=== PATIENT | female | born 1990 | race Two or more races ===

== ENCOUNTER 2022-12-24 20:27 | Outpatient (CLI) | payer OTHER | END 2022-12-24 20:28 | disposition home or self-care (01) | LOC: SC 20:27 | PROVIDERS: ATTEND Nurse Practitioner Family | DX: R06.83 Snoring (principal); G47.8 Other sleep disorders; R06.81 Apnea, not elsewhere classified; R51.9 Headache, unspecified; G47.10 Hypersomnia, unspecified; R53.83 Other fatigue; E66.3 Overweight; F32.A Depression, unspecified; E11.9 Type 2 diabetes mellitus without complications; Z68.26 Body mass index [BMI] 26.0-26.9, adult | CPT/HCPCS: 95810 ==

== ENCOUNTER 2023-02-11 08:26 | Emergency (ER) | payer OTHER ==
--- NOTE | 2023-02-11 08:50 | ED Physician Documentation ---
PD HPI NVD - Stated complaint Stated Complaint: VOMITING/WEAKNESS - Chief complaint Chief Complaint: Abd Pain - History obtained from History obtained from: Patient - History of Present Illness Timing - onset: Last night (about midinght) Timing - duration: Hours Timing - details: Abrupt onset, Still present Associated symptoms: Abdominal pain, Loss of appetite. No: Fever, Hematemesis, Near syncope / syncope Contributing factors: Bad food (she had salad for dinner, did not taste bad but was at restaurant. Had not had any URI symptoms.). No: Sick contact Improved by: No: Eating, Vomiting Worsened by: Eating Similar symptoms before: Has not had sx before Recently seen: Not recently seen Review of Systems Constitutional: reports: Myalgias, Fatigue. denies: Fever, Chills Nose: denies: Rhinorrhea / runny nose, Congestion Throat: denies: Sore throat Respiratory: denies: Cough GI: reports: Nausea, Vomiting. denies: Abdominal Swelling, Diarrhea : denies: Dysuria, Frequency, Discharge Neurologic: reports: Generalized weakness. denies: Near syncope PD PAST MEDICAL HISTORY - Past Medical History Past Medical History: Yes Cardiovascular: None GI: None FAN RUNNER: None - Past Surgical History Past Surgical History: No - Present Medications Home Medications: Ambulatory Orders Medication Instructions Recorded Confirmed Prazosin [Minipress] See Rx Instructions .ROUTE .COMPLEX 12/02/22 02/11/23 SUMAtriptan [Imitrex] See Rx Instructions .ROUTE .COMPLEX 12/02/22 02/11/23 Ondansetron Odt [Zofran] 4 mg TL Q6H PRN #12 tablet 02/11/23 - Allergies Allergies/Adverse Reactions: Allergies Allergy/AdvReac Type Severity Reaction Status Date / Time No Known Drug Allergies Allergy Verified 02/11/23 08:32 - Social History Does the pt smoke?: No Smoking Status: Never smoker Does the pt drink ETOH?: No - Immunizations Immunizations are current?: Yes - POLST Patient has POLST: No PD ED PE NORMAL - Vitals Vital signs reviewed: Yes - General General: Alert and oriented X 3, Well developed/nourished - HEENT HEENT: Pharynx benign - Neck Neck: Supple, no meningeal sign, No adenopathy - Cardiac Cardiac: No murmur. No: RRR (tachycardic but regular.) - Respiratory Respiratory: No respiratory distress, Clear bilaterally - Abdomen Abdomen: Normal bowel sounds, Soft, Non distended, Other (tender midly without guarding nor percussion tneder diffusely but more to LLQ. ) Results - Vitals Vitals: Oxygen O2 Source Room air - Labs Labs: Laboratory Tests 02/11/23 02/11/23 02/11/23 08:35 08:35 08:50 WBC 9.1 RBC 4.38 Hgb 12.7 Hct 39.7 MCV 90.6 MCH 29.0 MCHC 32.0 RDW 12.5 Plt Count 246 MPV 10.7 Neut # (Auto) 8.3 H Lymph # (Auto) 0.5 L Haines # (Auto) 0.2 Eos # (Auto) 0.1 Baso # (Auto) 0.0 Absolute Nucleated RBC 0.00 Nucleated RBC % 0.0 Sodium Potassium Chloride Carbon Dioxide Anion Gap BUN Creatinine Estimated GFR (MDRD) Glucose Calcium Total Bilirubin AST ALT Alkaline Phosphatase Total Protein Albumin Globulin Albumin/Globulin Ratio Lipase Urine Color YELLOW Urine Clarity CLEAR Urine pH 8.0 H Ur Specific [place] 1.015 Urine Protein NEGATIVE Urine Glucose (UA) NEGATIVE Urine Ketones NEGATIVE Urine Occult Blood NEGATIVE Urine Nitrite NEGATIVE Urine Bilirubin NEGATIVE Urine Urobilinogen 0.2 (NORMAL) Ur Leukocyte Esterase NEGATIVE Ur Microscopic Review NOT INDICATED Urine Culture Comments NOT INDICATED Urine HCG, Qual NEGATIVE 02/11/23 08:50 WBC RBC Hgb Hct MCV MCH MCHC RDW Plt Count MPV Neut # (Auto) Lymph # (Auto) Haines # (Auto) Eos # (Auto) Baso # (Auto) Absolute Nucleated RBC Nucleated RBC % Sodium 136 Potassium 3.9 Chloride 103 Carbon Dioxide 27 Anion Gap 6.0 BUN 11 Creatinine 0.6 Estimated GFR (MDRD) 116 Glucose 95 Calcium 9.3 Total Bilirubin 0.5 AST 19 ALT 19 Alkaline Phosphatase 52 Total Protein 7.2 Albumin 4.3 Globulin 2.9 Albumin/Globulin Ratio 1.5 Lipase 25 Urine Color Urine Clarity Urine pH Ur Specific [place] Urine Protein Urine Glucose (UA) Urine Ketones Urine Occult Blood Urine Nitrite Urine Bilirubin Urine Urobilinogen Ur Leukocyte Esterase Ur Microscopic Review Urine Culture Comments Urine HCG, Qual PD Medical Decision Making - ED course Complexity details: reviewed results (normal UA, CBC, and chemistries. ), re- evaluated patient (shared decision to not do any imaging as had just mild tenderness and mostly left abdomen. Not tender RLQ nor RUQ in particular. Will treat with IV fluids and meds of Oofran and Toradol. had good improvement in symptoms with this. Taking PO well. Basic CBC and chemistires normal in my reviedw. ), considered differential (abrupt onset midnightish and through night of nausea and vomiting, some diffuse abd cramping. No diarrhea. She attributes it to a sald for dinner. General weakness and lightheaded this morning. Sytill nausea. ), d/w patient Departure - Departure Disposition: 01 Home, Self Care Clinical Impression: Volume depletion Nausea and vomiting Qualifiers: Vomiting type: bilious vomiting Qualified Code(s): R11.14 - Bilious vomiting Condition: Stable Record reviewed to determine appropriate education?: Yes Instructions: ED Nausea Vomiting Prescriptions: Ondansetron Odt [Zofran] 4 mg TL Q6H PRN #12 tablet PRN Reason: Nausea / Vomiting Comments: This most likely is a viral "stomach flu" in the last a day or 2. Sometimes it is food related with toxin or "food poisoning". This also tends to last just a day or 2. However you will still likely have some symptoms today. I wrote a prescription for some ondansetron/Zofran to use every 4-6 hours if needed for nausea. Small frequent fluids and electrolyte type drinks such as Gatorade or such. [place] food such as crackers rice and pastas initially and progress as tolerated. Tylenol every 4-6 hours if needed for stomach cramps. You may develop some element of diarrhea 2 and if so some [id number] Imodium can be used. [facility] Off work today and tomorrow. Progress activity and diet as tolerated. Recheck if not better in the next couple of days. Forms: PCP List, Activity restrictions Discharge Date/Time: 02/11/23 11:46
[2023-02-11 08:57] LABS: BASOPHILS % (AUTO) 0.1 %; EOSINOPHILS # (AUTO) 0.1 10^3/uL (0.0-0.7); EOSINOPHILS % (AUTO) 0.7 %; HCT - HEMATOCRIT 39.7 % (37.0-47.0); HGB - HEMOGLOBIN 12.7 g/dL (12.0-16.0); LYMPHOCYTES # (AUTO) 0.5 10^3/uL (1.5-3.5); LYMPHOCYTES % (AUTO) 5.9 %; MEAN CORPUSCULAR VOLUME 90.6 fL (81.0-99.0); MEAN PLATELET VOLUME 10.7 fL (7.9-10.8); MONOCYTES # (AUTO) 0.2 10^3/uL (0.0-1.0); MONOCYTES % (AUTO) 2.3 %; NEUTROPHILS # (AUTO) 8.3 10^3/uL (1.5-6.6); NEUTROPHILS % (AUTO) 90.8 %; PLT - PLATELET COUNT 246 10^3/uL (130-450); RED BLOOD COUNT 4.38 10^6/uL (4.20-5.40); RED CELL DISTRIBUTION WIDTH 12.5 % (12.0-15.0); WHITE BLOOD COUNT 9.1 x10^3/uL (4.8-10.8)
[2023-02-11 09:01] LABS: BILIRUBIN,URINE NEGATIVE (NEGATIVE); GLUCOSE, URINE (UA) NEGATIVE (NEGATIVE); KETONES,URINE (UA) NEGATIVE (NEGATIVE); LEUKOCYTE ESTERASE, URINE NEGATIVE (NEGATIVE); NITRITE,URINE NEGATIVE (NEGATIVE); OCCULT BLOOD,URINE NEGATIVE (NEGATIVE); PROTEIN,URINE NEGATIVE (NEGATIVE); UROBILINOGEN,URINE 0.2 (NORMAL) E.U./dL (NORMAL)
[2023-02-11 09:04] LABS: CLARITY,URINE CLEAR (CLEAR); HCG UR QUAL NEGATIVE
[2023-02-11 09:12] LABS: ALBUMIN 4.3 g/dL (3.2-5.5); ALBUMIN/GLOBULIN RATIO 1.5 (1.0-2.2); BILIRUBIN,TOTAL 0.5 mg/dL (0.2-1.0); CALCIUM 9.3 mg/dL (8.5-10.3); CREATININE 0.6 mg/dL (0.6-1.3); POTASSIUM 3.9 mmol/L (3.5-4.5); TOTAL PROTEIN 7.2 g/dL (6.4-8.9)
[2023-02-11] MEDS ORDERED: SODIUM CHLORIDE 0.9% 1,000 ML IV STA ×2 (09:24→09:25)
[2023-02-11] MEDS ORDERED: KETOROLAC 15 MG/ML VIAL IVP STA (09:24)
[2023-02-11] MEDS ORDERED: ONDANSETRON 4 MG/2 ML VIAL IVP STA (09:24)
[2023-02-11 11:16] VITALS: BP 106/70; O2SAT 99
== END 2023-02-11 11:46 | disposition home or self-care (01) ==
LOC: ED 08:26
DX: R11.14 Bilious vomiting (principal); E86.9 Volume depletion, unspecified
CPT/HCPCS: 36415; 80053; 81001; 81003; 81025; 83690; 85025; 87086; 96361; 96374; 99284